=== PATIENT | female | born 1960 | race Caucasian/White ===

== ENCOUNTER 2016-06-15 11:14 | Outpatient (CLI) | payer OTHER ==
[2014-08-27 14:45] VITALS: BMI 28.7
[2016-06-15 11:52] LABS: PROTHROMBIN TIME 22.8 SEC (9.3-11.0)
== END 2016-06-15 11:15 | disposition home or self-care (01) ==
LOC: LAB 11:14
PROVIDERS: ATTEND Nurse Practitioner Family
DX: D68.62 Lupus anticoagulant syndrome (principal)
CPT/HCPCS: 36415; 85610

== ENCOUNTER 2016-07-14 08:25 | Outpatient (CLI) | payer OTHER ==
[2014-08-27 14:45] VITALS: BMI 28.7
[2016-07-14 09:22] LABS: BILIRUBIN,URINE Negative (NEGATIVE); KETONES,URINE Negative (NEGATIVE); LEUKOCYTE ESTERASE ,URINE Negative (NEGATIVE); NITRITE,URINE Negative (NEGATIVE); PH,URINE 5.5 (5-9); PROTEIN,URINE Negative (NEGATIVE); URINE, BLOOD Negative (NEGATIVE)
[2016-07-14 09:23] LABS: ADD URINE MICROSCOPIC NO
[2016-07-14 09:23] LABS: PROTHROMBIN TIME 23.5 SEC (9.3-11.0)
[2016-07-14 09:59] LABS: ALBUMIN 3.7 g/dL (3.4-5.0); ALBUMIN/GLOBULIN RATIO 1.12; ANION GAP 14.6; BILIRUBIN,TOTAL 0.37 mg/dL (0.00-1.20); BUN/CREATININE RATIO 12.85; CALCIUM 8.9 mg/dL (8.2-10.2); CREATININE 0.7 mg/dL (0.60-1.30); POTASSIUM 4.6 mmol/L (3.5-5.10)
== END 2016-07-14 08:26 | disposition home or self-care (01) ==
LOC: LAB 08:25
PROVIDERS: ATTEND Nurse Practitioner Family
DX: D68.62 Lupus anticoagulant syndrome (principal); R31.9 Hematuria, unspecified
CPT/HCPCS: 36415; 80053; 81001; 83036; 85610

== ENCOUNTER 2016-11-06 11:07 | Outpatient (CLI) | payer OTHER ==
[2014-08-27 14:45] VITALS: BMI 28.7
[2016-11-06 11:35] LABS: PROTHROMBIN TIME 10.8 SEC (9.3-11.0)
== END 2016-11-06 11:08 | disposition home or self-care (01) ==
LOC: LAB 11:07
PROVIDERS: ATTEND Nurse Practitioner Family
DX: D68.62 Lupus anticoagulant syndrome (principal)
CPT/HCPCS: 36415; 85610

== ENCOUNTER 2016-11-11 15:18 | Emergency (ER) | payer OTHER ==
[2016-11-11 15:22] VITALS: BP 117/73; TEMP 98.2; BMI 27.3
--- NOTE | 2016-11-11 16:43 | ED.PDOC ---
General ED Provider: Dr. DOMENICA ZUÑIGA Chief Complaint: Extremity Pain/Injury Stated Complaint: Pateint is 56 year old female who complains of pain starts on the lower back radiating to the right thigh. Denies any Recent trauma. she is on warfarin for DVT Time Seen by Physician: 16:41 Mode of Arrival: Walk-In Information Source: Patient Exam Limitations: No limitations Primary Care Provider: CHLOE DANIEL Nursing and Triage Documentation Reviewed and Agree: Yes Musculoskeletal Complaint Exam - Hip/Pelvis Complaint/Exam Location of Pain: Reports: Left Mechanism of Injury: Reports: No known trauma Onset/Duration: 1 day Symptoms Are: Still present Initial Severity: Moderate Current Severity: Severe Location: Reports: Radiating (left leg) Character: Reports: Dull, Aching Aggravating: Reports: Movement, Weight bearing Alleviating: Reports: Rest Associated Signs and Symptoms: Denies: Swelling, Redness, Bruising, Fever, Weakness, Dizziness, Syncope, Abdominal pain, Knee pain Able to Bear Weight: Yes Septic Arthritis Risk Factors: Reports: None Rotation: External Pelvis Palpation: Stable Hip/Pelvis Findings: Absent: Extremity shortened, Swelling, Ecchymosis, Erythema , Warmth Tenderness: Present: Left, PSIS Range of Motion Limited In: Present: External rotation NV Bundle Intact Distal to Injury: Yes Differential Diagnoses: Sciatica, Sprain, Strain Review of Systems - Review Of Systems Constitutional: Reports: No symptoms Eyes: Reports: No symptoms Ears, Nose, Mouth, Throat: Reports: No symptoms Respiratory: Reports: No symptoms Cardiac: Reports: No symptoms GI: Reports: No symptoms : Reports: No symptoms Musculoskeletal: Reports: Back pain, Joint pain, Muscle pain Skin: Reports: No symptoms Neurological: Reports: Anxiety Endocrine: Reports: No symptoms Hematologic/Lymphatic: Reports: No symptoms All Other Systems: Reviewed and Negative Past Medical History - Past Medical History Previously Healthy: Yes Endocrine: Reports: DM 2 Cardiovascular: Reports: DVT Respiratory: Reports: None Hematological: Reports: None Gastrointestinal: Reports: None Genitourinary: Reports: None Neuro/Psych: Reports: None Musculoskeletal: Reports: None Cancer: Reports: None Last Menstrual Period: none - Surgical History General Surgical History: Reports: None - Family History Family History: Reports: None - Social History Smoking Status: Current every day smoker, Light tobacco smoker Hx Substance Use: No Alcohol Screening: None Physical Exam - Physical Exam Appearance: Well-appearing, No pain distress, Well-nourished Eyes: MARIA ESTHER, EOMI, Conjunctiva clear ENT: Ears normal, Nose normal, Oropharynx normal Respiratory: Airway patent, Breath sounds clear, Breath sounds equal, Respirations nonlabored Cardiovascular: RRR, Pulses normal, No rub, No murmur GI/: Soft, Nontender, No masses, Bowel sounds normal, No Organomegaly Musculoskeletal: Normal strength, No edema, No calf tenderness, Limited ROM ( Left up fo full extension) Skin: Warm, Dry, Normal color Neurological: Sensation intact, Motor intact, Reflexes intact, Cranial nerves intact, Alert, Oriented Psychiatric: Affect appropriate, Mood appropriate Interpretation - Radiology Interpretation Radiology Interpretation By: ED Physician Radiology Results: Negative Exam Interpreted: Other (Left hip ) Critical Care Note - Critical Care Note Total Time (mins): 0 Course - Course Orders, Labs, Meds: Lab Review 11/11/16 16:40 PT 14.3 H INR 1.39 Orders Category Date Time Status PT WITH INR Stat LAB 11/11/16 16:40 Completed Ketorolac Tromethamine [Toradol] MEDS 11/11/16 16:59 Discontinued 60 mg IM ONCE STA HIP, LEFT 2 VIEWS Stat RADS 11/11/16 16:40 Taken Medications Discontinued Medications Generic Name Dose Route Start Last Admin Trade Name Freq PRN Reason Stop Dose Admin Ketorolac Tromethamine 60 mg 11/11/16 16:59 11/11/16 17:07 Toradol IM 11/11/16 17:00 60 mg ONCE STA Administration Vital Signs: Temp Pulse Resp BP Pulse Ox 11/11/16 15:19 98.2 F 80 18 117/73 96 Departure - Departure Time of Disposition: 17:03 Disposition: HOME SELF-CARE Discharge Problem: Sciatic leg pain Instructions: Piriformis Syndrome (ED) Condition: Fair Pt referred to PMD for follow-up: Yes Additional Instructions: Rest Take pain medications as prescribed Followup with PCP in 3 days Call your clinic to let them know your INR is not therapeutic so that they can adjust your medications accordingly Prescriptions: Hydrocodone/Acetaminophen [[place] 5-325 Tablet] 1 tab PO Q6HR PRN #12 tablet PRN Reason: PAIN Allergies/Adverse Reactions: Allergies Penicillins Adverse Reaction (Verified 11/11/16 15:24) Home Medications: Ambulatory Orders Citalopram Hydrobromide [Citalopram HBr] 10 mg PO DAILY 11/11/16 Hydrocodone/Acetaminophen [[place] 5-325 Tablet] 1 tab PO Q6HR PRN #12 tablet Disposition Discussed With: Patient
[2016-11-11] MEDS ORDERED: TORADOL IM STA (16:59)
[2016-11-11 17:09] LABS: PROTHROMBIN TIME 14.3 SEC (9.3-11.0)
--- NOTE | 2016-11-11 18:13 | DI ---
EXAM: Two views of the left hip. History: Left hip pain. Findings: No acute fracture or dislocation. Left hip joint space is relatively preserved. Nonspec ific pelvic calcifications are probably phleboliths. Impression: No acute osseous abnormality.
== END 2016-11-11 17:28 | disposition home or self-care (01) ==
LOC: ED 15:18
DX: M54.42 Lumbago with sciatica, left side (principal); Z79.01 Long term (current) use of anticoagulants; Z79.899 Other long term (current) drug therapy; Z86.718 Personal history of other venous thrombosis and embolism; F17.210 Nicotine dependence, cigarettes, uncomplicated
CPT/HCPCS: 36415; 85610; 96372; 99282

== ENCOUNTER 2016-11-30 10:51 | Outpatient (CLI) ==
[2016-11-30 11:32] LABS: PROTHROMBIN TIME 13.8 SEC (9.3-11.0)
== END 2016-11-30 10:52 | disposition home or self-care (01) ==
LOC: LAB 10:51
PROVIDERS: ATTEND Nurse Practitioner Family
DX: D68.62 Lupus anticoagulant syndrome (principal)
CPT/HCPCS: 36415; 85610

== ENCOUNTER 2016-12-01 22:14 | Emergency (ER) ==
[2016-12-01 22:25] VITALS: BP 127/86; TEMP 100.3; BMI 26.0
--- NOTE | 2016-12-01 23:12 | DI ---
EXAM: Right ankle. Three-view HISTORY: Fall COMPARISON: 02/22/2040 FINDINGS: No acute fracture dislocation. Small chronic ossification near the distal fibula may be due to old trauma or ossification center. Ankle mortise is symmetric. Tiny plantar calcaneal spur. N o focal soft tissue abnormality. IMPERSSION: No acute fracture or dislocation.
--- NOTE | 2016-12-01 23:14 | DI ---
EXAM: Right foot three views HISTORY: Fall COMPARISON: 02/21/2014 FINDINGS: No fracture or dislocation. Tiny plantar calcaneal spur. The joints are normal. No focal soft tissue abnormality. IMPERSSION: No fracture or dislocation
--- NOTE | 2016-12-01 23:15 | DI ---
EXAM: Right shoulder three view HISTORY: Fall COMPARISON: None FINDINGS: The bones are normal. The glenohumeral joint and acromioclavicular joint are normal. No f ocal soft tissue abnormality. Visualized portion of the chest is normal. IMPERSSION: Normal examination.
--- NOTE | 2016-12-01 23:21 | ED.PDOC ---
General ED Provider: Dr. RONAL OJEDA-ER Chief Complaint: Foot Pain/Injury Stated Complaint: i fell and hurt myself 111/2 weeks ago-now its more painful Time Seen by Physician: 22:15 Mode of Arrival: Walk-In Information Source: Patient Exam Limitations: No limitations Primary Care Provider: CHLOE DANIEL Nursing and Triage Documentation Reviewed and Agree: Yes Musculoskeletal Complaint Exam - Ankle/Foot Complaint/Exam Location of Injury: Reports: Right, Ankle, Foot Mechanism of Injury: Reports: Trauma Onset/Duration: 11/2 weeks ago Symptoms Are: Reports: Still present Onset of Pain: Reports: Immediate Initial Severity: Mild Current Severity: Mild Location: Reports: Discrete (right ankle) Character: Reports: Dull, Aching Alleviating: Reports: Rest, Position Aggravating: Reports: Movement, Weight bearing, Prolonged standing Able to Bear Weight: Yes Associated Signs and Symptoms: Reports: Swelling, Bruising Lower Extremity Findings: Present: Swelling, Ecchymosis, Tenderness, Limited range of motion Achilles Tendon Abnormality: No Tenderness: Present: Lateral malleolus Limited Range of Motion: Present: Inversion, Eversion Differential Diagnosis: Closed Fracture, Sprain, Strain Review of Systems - Review Of Systems Constitutional: Reports: No symptoms Eyes: Reports: No symptoms Ears, Nose, Mouth, Throat: Reports: No symptoms Respiratory: Reports: No symptoms Cardiac: Reports: No symptoms GI: Reports: No symptoms : Reports: No symptoms Musculoskeletal: Reports: Joint pain, Joint swelling, Muscle pain Skin: Reports: No symptoms Neurological: Reports: No symptoms Endocrine: Reports: No symptoms Hematologic/Lymphatic: Reports: No symptoms All Other Systems: Reviewed and Negative Past Medical History - Past Medical History Previously Healthy: Yes Endocrine: Reports: DM 2 Cardiovascular: Reports: DVT Respiratory: Reports: None Hematological: Reports: None Gastrointestinal: Reports: None Genitourinary: Reports: None Neuro/Psych: Reports: None Musculoskeletal: Reports: None Cancer: Reports: None Last Menstrual Period: YEARS AGO - Surgical History General Surgical History: Reports: None - Family History Family History: Reports: None - Social History Smoking Status: Current every day smoker, Light tobacco smoker Hx Substance Use: No Alcohol Screening: None Lives: With family - Immunizations Tetanus Shot up to Date: (UNKNOWN) Physical Exam - Physical Exam Appearance: Well-appearing, No pain distress, Well-nourished Pain Distress: Mild Eyes: MARIA ESTHER, EOMI, Conjunctiva clear ENT: Ears normal, Nose normal, Oropharynx normal Neck: Supple Respiratory: Airway patent Cardiovascular: RRR, Pulses normal, No rub, No murmur GI/: Soft, Nontender, No masses, Bowel sounds normal, No Organomegaly Musculoskeletal: Limited ROM Skin: Warm, Dry, Normal color Neurological: Sensation intact, Motor intact, Reflexes intact, Cranial nerves intact, Alert, Oriented Psychiatric: Affect appropriate, Mood appropriate Critical Care Note - Critical Care Note Total Time (mins): 0 Course - Course Orders, Labs, Meds: Orders Category Date Time Status ANKLE, RIGHT MIN 3 VIEWS Stat RADS 12/01/16 22:32 Completed FOOT, RIGHT 3 VIEWS Stat RADS 12/01/16 22:32 Completed SHOULDER, RIGHT MIN 2V Stat RADS 12/01/16 22:32 Completed Vital Signs: Temp Pulse Resp BP Pulse Ox 12/01/16 22:15 100.3 F H 70 18 127/86 94 L Departure - Departure Time of Disposition: 23:21 Disposition: HOME SELF-CARE Discharge Problem: Ankle sprain Qualifiers: Encounter type: initial encounter Involved ligament of ankle: other ligament Laterality: right Qualifier Code: (S93.491A) Sprain of other ligament of right ankle, initial encounter Instructions: Ankle Sprain (ED) Condition: Good Pt referred to PMD for follow-up: Yes Additional Instructions: stay in splint and crutches--norco 5mg q 4hrs pr npain #15--f/u pcp next week Allergies/Adverse Reactions: Allergies Penicillins Adverse Reaction (Verified 12/01/16 22:25) Home Medications: Ambulatory Orders Citalopram Hydrobromide [Citalopram HBr] 10 mg PO DAILY 11/11/16 Metformin HCl 1,000 mg PO DAILY 12/01/16 Disposition Discussed With: Patient
== END 2016-12-01 23:50 | disposition home or self-care (01) ==
LOC: ED 22:14
DX: S93.491A Sprain of other ligament of right ankle, initial encounter (principal); W19.XXXA Unspecified fall, initial encounter; F17.210 Nicotine dependence, cigarettes, uncomplicated
CPT/HCPCS: 99282

== ENCOUNTER 2016-12-05 11:41 | Outpatient (CLI) ==
[2016-12-05 12:26] LABS: PROTHROMBIN TIME 17.9 SEC (9.3-11.0)
== END 2016-12-05 11:42 | disposition home or self-care (01) ==
LOC: LAB 11:41
PROVIDERS: ATTEND Nurse Practitioner Family
DX: D68.62 Lupus anticoagulant syndrome (principal)
CPT/HCPCS: 36415; 85610

== ENCOUNTER 2016-12-20 11:12 | Outpatient (CLI) ==
[2016-12-20 11:40] LABS: PROTHROMBIN TIME 26.4 SEC (9.3-11.0)
== END 2016-12-20 11:13 | disposition home or self-care (01) ==
LOC: LAB 11:12
PROVIDERS: ATTEND Nurse Practitioner Family
DX: D68.62 Lupus anticoagulant syndrome (principal)
CPT/HCPCS: 36415; 85610

== ENCOUNTER 2017-01-09 11:40 | Outpatient (CLI) ==
[2017-01-09 12:26] LABS: PROTHROMBIN TIME 22.3 SEC (9.3-11.0)
== END 2017-01-09 11:41 | disposition home or self-care (01) ==
LOC: LAB 11:40
PROVIDERS: ATTEND Nurse Practitioner Family
DX: D68.62 Lupus anticoagulant syndrome (principal)
CPT/HCPCS: 36415; 85610

== ENCOUNTER 2017-02-05 10:29 | Outpatient (CLI) ==
[2017-02-05 10:58] LABS: PROTHROMBIN TIME 10.7 SEC (9.3-11.0)
== END 2017-02-05 10:30 | disposition home or self-care (01) ==
LOC: LAB 10:29
PROVIDERS: ATTEND Nurse Practitioner Family
DX: D68.62 Lupus anticoagulant syndrome (principal)
CPT/HCPCS: 36415; 85610

== ENCOUNTER 2017-02-14 09:06 | Outpatient (CLI) ==
[2017-02-14 09:53] LABS: PROTHROMBIN TIME 22.3 SEC (9.3-11.0)
== END 2017-02-14 09:07 | disposition home or self-care (01) ==
LOC: LAB 09:06
PROVIDERS: ATTEND Nurse Practitioner Family
DX: D68.62 Lupus anticoagulant syndrome (principal)
CPT/HCPCS: 36415; 85610

== ENCOUNTER 2017-03-05 11:48 | Outpatient (CLI) ==
[2017-03-05 12:38] LABS: PROTHROMBIN TIME 24.3 SEC (9.3-11.0)
== END 2017-03-05 11:49 | disposition home or self-care (01) ==
LOC: LAB 11:48
PROVIDERS: ATTEND Nurse Practitioner Family
DX: D68.62 Lupus anticoagulant syndrome (principal)
CPT/HCPCS: 36415; 85610

== ENCOUNTER 2017-03-12 08:48 | Outpatient (CLI) ==
[2017-03-12 09:20] LABS: PROTHROMBIN TIME 22.9 SEC (9.3-11.0)
== END 2017-03-12 08:49 | disposition home or self-care (01) ==
LOC: LAB 08:48
PROVIDERS: ATTEND Nurse Practitioner Family
DX: D68.62 Lupus anticoagulant syndrome (principal)
CPT/HCPCS: 36415; 85610

== ENCOUNTER 2017-04-11 08:55 | Outpatient (CLI) ==
[2017-04-11 09:41] LABS: PROTHROMBIN TIME 20.2 SEC (9.3-11.0)
== END 2017-04-11 08:56 | disposition home or self-care (01) ==
LOC: RAD 08:55 → LAB 08:56
PROVIDERS: ATTEND Nurse Practitioner Family
DX: D68.62 Lupus anticoagulant syndrome (principal)
CPT/HCPCS: 36415; 85610

== ENCOUNTER 2017-04-23 12:46 | Outpatient (CLI) ==
[2017-04-23 13:20] LABS: PROTHROMBIN TIME 22.3 SEC (9.3-11.0)
== END 2017-04-23 12:47 | disposition home or self-care (01) ==
LOC: LAB 12:46
PROVIDERS: ATTEND Nurse Practitioner Family
DX: D68.62 Lupus anticoagulant syndrome (principal)
CPT/HCPCS: 36415; 85610

== ENCOUNTER 2017-05-23 13:47 | Outpatient (CLI) ==
[2017-05-23 14:07] LABS: PROTHROMBIN TIME 15.2 SEC (9.3-11.0)
== END 2017-05-23 13:48 | disposition home or self-care (01) ==
LOC: LAB 13:47
PROVIDERS: ATTEND Nurse Practitioner Family
DX: D68.62 Lupus anticoagulant syndrome (principal)
CPT/HCPCS: 36415; 85610

== ENCOUNTER 2017-05-31 08:56 | Outpatient (CLI) | END 2017-05-31 08:57 | disposition home or self-care (01) | LOC: LAB 08:56 | PROVIDERS: ATTEND Nurse Practitioner Family | DX: D68.62 Lupus anticoagulant syndrome (principal); E11.9 Type 2 diabetes mellitus without complications; K21.9 Gastro-esophageal reflux disease without esophagitis; E75.6 Lipid storage disorder, unspecified | CPT/HCPCS: 36415; 80053; 80061; 83036; 85025; 85610 ==

== ENCOUNTER 2017-06-18 11:26 | Outpatient (CLI) | END 2017-06-18 11:27 | disposition home or self-care (01) | LOC: LAB 11:26 | PROVIDERS: ATTEND Nurse Practitioner Family | DX: D68.62 Lupus anticoagulant syndrome (principal) | CPT/HCPCS: 36415; 85610 ==

== ENCOUNTER 2017-07-05 10:50 | Outpatient (CLI) | END 2017-07-05 10:51 | disposition home or self-care (01) | LOC: LAB 10:50 | PROVIDERS: ATTEND Nurse Practitioner Family | DX: D68.62 Lupus anticoagulant syndrome (principal) | CPT/HCPCS: 36415; 85610 ==

== ENCOUNTER 2017-07-16 15:03 | Outpatient (CLI) | END 2017-07-16 15:04 | disposition home or self-care (01) | LOC: LAB 15:03 | PROVIDERS: ATTEND Nurse Practitioner Family | DX: D68.62 Lupus anticoagulant syndrome (principal) | CPT/HCPCS: 36415; 85610 ==

== ENCOUNTER 2017-08-09 09:35 | Outpatient (CLI) | END 2017-08-09 09:36 | disposition home or self-care (01) | LOC: LAB 09:35 | PROVIDERS: ATTEND Nurse Practitioner Family | DX: D68.62 Lupus anticoagulant syndrome (principal) | CPT/HCPCS: 36415; 85610 ==

== ENCOUNTER 2017-08-15 13:04 | Outpatient (CLI) | END 2017-08-15 13:05 | disposition home or self-care (01) | LOC: LAB 13:04 | PROVIDERS: ATTEND Nurse Practitioner Family | DX: D68.62 Lupus anticoagulant syndrome (principal) | CPT/HCPCS: 36415; 85610 ==

== ENCOUNTER 2017-08-27 12:49 | Outpatient (CLI) | END 2017-08-27 12:50 | disposition home or self-care (01) | LOC: LAB 12:49 | PROVIDERS: ATTEND Nurse Practitioner Family | DX: D68.62 Lupus anticoagulant syndrome (principal) | CPT/HCPCS: 36415; 85610 ==

== ENCOUNTER 2017-09-03 10:25 | Outpatient (CLI) | END 2017-09-03 10:26 | disposition home or self-care (01) | LOC: LAB 10:25 | PROVIDERS: ATTEND Nurse Practitioner Family | DX: D68.62 Lupus anticoagulant syndrome (principal) | CPT/HCPCS: 36415; 85610 ==

== ENCOUNTER 2017-09-11 09:44 | Outpatient (CLI) | payer OTHER | END 2017-09-11 09:45 | disposition home or self-care (01) | LOC: LAB 09:44 | PROVIDERS: ATTEND Nurse Practitioner Family | DX: D68.62 Lupus anticoagulant syndrome (principal); E78.5 Hyperlipidemia, unspecified; E11.9 Type 2 diabetes mellitus without complications | CPT/HCPCS: 36415; 80053; 80061; 83036; 85025; 85610 ==

== ENCOUNTER 2017-09-14 10:12 | Outpatient (CLI) | END 2017-09-14 10:13 | disposition home or self-care (01) | LOC: LAB 10:12 | PROVIDERS: ATTEND Nurse Practitioner Family | DX: D68.62 Lupus anticoagulant syndrome (principal) | CPT/HCPCS: 36415; 85610 ==

== ENCOUNTER 2017-09-28 11:20 | Outpatient (CLI) | payer OTHER | END 2017-09-28 11:21 | disposition home or self-care (01) | LOC: LAB 11:20 | PROVIDERS: ATTEND Nurse Practitioner Family | DX: D68.62 Lupus anticoagulant syndrome (principal) | CPT/HCPCS: 36415; 85610 ==

== ENCOUNTER 2017-10-12 11:27 | Outpatient (CLI) | END 2017-10-12 11:28 | disposition home or self-care (01) | LOC: LAB 11:27 | PROVIDERS: ATTEND Nurse Practitioner Family | DX: D68.62 Lupus anticoagulant syndrome (principal) | CPT/HCPCS: 36415; 85610 ==

== ENCOUNTER 2017-11-21 14:19 | Outpatient (CLI) | END 2017-11-21 14:20 | disposition home or self-care (01) | LOC: LAB 14:19 | PROVIDERS: ATTEND Nurse Practitioner Family | DX: D68.62 Lupus anticoagulant syndrome (principal) | CPT/HCPCS: 36415; 85610 ==

== ENCOUNTER 2017-12-10 13:03 | Outpatient (CLI) | END 2017-12-10 13:04 | disposition home or self-care (01) | LOC: LAB 13:03 | PROVIDERS: ATTEND Family Medicine | DX: D68.62 Lupus anticoagulant syndrome (principal) | CPT/HCPCS: 36415; 85610 ==

== ENCOUNTER 2018-02-14 11:35 | Outpatient (CLI) | END 2018-02-14 11:36 | disposition home or self-care (01) | LOC: LAB 11:35 | PROVIDERS: ATTEND Family Medicine | DX: D68.62 Lupus anticoagulant syndrome (principal) | CPT/HCPCS: 36415; 85610 ==

== ENCOUNTER 2018-07-06 16:17 | Emergency (ER) | payer OTHER ==
[2018-07-06 16:21] VITALS: BP 155/90; TEMP 98; BMI 27.0
--- NOTE | 2018-07-06 16:39 | ED.PDOC ---
General ED Provider: Dr. RONAL LOWE Chief Complaint: Back Pain Stated Complaint: Mid Thoracic spine pain-intermittent;increased with deep breathing and movement. Cough productive of yellowish colored sputum. Cough and congestion/. phlegm. states she has nasal congestion also. denies sore throat. Time Seen by Physician: 16:35 Mode of Arrival: Walk-In Information Source: Patient Exam Limitations: No limitations Primary Care Provider: ALFONSO BAEZA Nursing and Triage Documentation Reviewed and Agree: Yes Does patient meet sepsis criteria?: No System Inflammatory Response Syndrome: Not Applicable Sepsis Protocol: For patient's 13 years and over: Temp is 96.8 and below OR 101 and greater Pulse >90 BPM Resp >20/minute Acutely Altered Mental Status Are patient's symptoms suggestive of a new infection, such as: -Pneumonia -Skin, Soft Tissue -Endocarditis -UTI -Bone, Joint Infection -Implantable Device -Acute Abdominal Infection -Wound Infection -Meningitis -Blood Stream Catheter Infection -Unknown Review of Systems - Review Of Systems Constitutional: Reports: No symptoms Eyes: Reports: No symptoms Ears, Nose, Mouth, Throat: Reports: No symptoms Respiratory: Reports: No symptoms Cardiac: Reports: No symptoms GI: Reports: No symptoms : Reports: Burning, Dysuria Musculoskeletal: Reports: Back pain Skin: Reports: No symptoms Neurological: Reports: No symptoms Endocrine: Reports: No symptoms Hematologic/Lymphatic: Reports: No symptoms All Other Systems: Reviewed and Negative Past Medical History - Past Medical History Previously Healthy: Yes Endocrine: Reports: DM 2 Cardiovascular: Reports: DVT Respiratory: Reports: None Hematological: Reports: None Gastrointestinal: Reports: None Genitourinary: Reports: None Neuro/Psych: Reports: None Musculoskeletal: Reports: None Cancer: Reports: None Last Menstrual Period: n/a - Surgical History General Surgical History: Reports: None - Family History Family History: Reports: None - Social History Smoking Status: Current every day smoker, Light tobacco smoker Hx Substance Use: No Alcohol Screening: None Physical Exam - Physical Exam Appearance: Well-appearing, No pain distress, Well-nourished Ill-appearing: None Pain Distress: None Eyes: MARIA ESTHER, EOMI, Conjunctiva clear ENT: Ears normal, Nose normal, Oropharynx normal Neck: Supple Respiratory: Airway patent, Breath sounds clear, Breath sounds equal, Respirations nonlabored Cardiovascular: RRR, Pulses normal, No rub, No murmur GI/: Soft, Nontender, No masses, Bowel sounds normal, No Organomegaly Musculoskeletal: Normal strength, ROM intact, No edema, No calf tenderness Skin: Warm, Dry, Normal color Neurological: Sensation intact, Motor intact, Reflexes intact, Cranial nerves intact, Alert, Oriented Psychiatric: Affect appropriate, Mood appropriate Re-Evaluation - Re-Evaluation Time of Re-Evaluation: 19:00 Status: Improved Vital Signs Stable: Yes Appearance: NAD Lungs: Clear Skin: Warm and Dry Neuro: Alert and Oriented X3 CV: RRR Critical Care Note - Critical Care Note Total Time (mins): 0 Course - Course Hematology/Chemistry: 07/06/18 17:00 07/06/18 17:00 Orders, Labs, Meds: Lab Review 07/06/18 07/06/18 07/06/18 16:43 16:52 16:52 WBC RBC Hgb Hct MCV MCH MCHC RDW Coeff of Ally Plt Count Immature Gran % (Auto) Neut % (Auto) Lymph % (Auto) [place] % (Auto) Eos % (Auto) Baso % (Auto) Immature Gran # (Auto) Neut # (Auto) Lymph # (Auto) [place] # (Auto) Eos # (Auto) Baso # (Auto) Puncture Site L radial O2 Saturation 94.0 L ABG pH 7.419 ABG pCO2 36.7 ABG pO2 71.0 L ABG HCO3 23.8 ABG Total CO2 25 ABG Base Excess -1 Ricardo Test + FiO2 % 21.0 Sodium Potassium Chloride Carbon Dioxide Anion Gap BUN Creatinine Estimated GFR (MDRD) BUN/Creatinine Ratio Glucose Calcium Total Bilirubin AST ALT Alkaline Phosphatase Troponin I Total Protein Albumin Globulin Albumin/Globulin Ratio Urine Color Urine Clarity Urine pH Ur Specific [place] Urine Protein Urine Glucose (UA) Urine Ketones Urine Blood Urine Nitrite Urine Bilirubin Urine Urobilinogen Ur Leukocyte Esterase Urine Microscopic RBC Urine Microscopic WBC Ur Squamous Epith Cells Urine Bacteria Urine Mucus Influ A Molecular Assay Negative by naat Influ B Molecular Assay Negative by naat RSV Antigen Negative by naat 07/06/18 07/06/18 07/06/18 17:00 17:00 17:40 WBC 8.10 RBC 4.86 Hgb 13.6 Hct 41.5 MCV 85.4 MCH 28.0 MCHC 32.8 RDW Coeff of Ally 13.0 Plt Count 272 Immature Gran % (Auto) 0.5 Neut % (Auto) 65.4 Lymph % (Auto) 28.6 [place] % (Auto) 4.7 Eos % (Auto) 0.6 Baso % (Auto) 0.2 Immature Gran # (Auto) 0.0 Neut # (Auto) 5.3 Lymph # (Auto) 2.3 [place] # (Auto) 0.4 Eos # (Auto) 0.1 Baso # (Auto) 0.0 Puncture Site O2 Saturation ABG pH ABG pCO2 ABG pO2 ABG HCO3 ABG Total CO2 ABG Base Excess Ricardo Test FiO2 % Sodium 141.2 Potassium 4.05 Chloride 103.1 Carbon Dioxide 27.9 Anion Gap 14.25 BUN 11.7 Creatinine 0.55 L Estimated GFR (MDRD) 114.00 BUN/Creatinine Ratio 21.27 Glucose 148.0 H Calcium 9.24 Total Bilirubin 0.54 AST 20.3 ALT 16.6 Alkaline Phosphatase 64.7 Troponin I < 0.012 Total Protein 7.88 Albumin 4.24 Globulin 3.64 Albumin/Globulin Ratio 1.16 Urine Color Yellow Urine Clarity Clear Urine pH 6.0 Ur Specific [place] >=1.030 Urine Protein Trace Urine Glucose (UA) Negative Urine Ketones 2+ Urine Blood Trace-intact Urine Nitrite Negative Urine Bilirubin Negative Urine Urobilinogen 2.0 Ur Leukocyte Esterase Negative Urine Microscopic RBC 0-2 Urine Microscopic WBC 0-2 Ur Squamous Epith Cells 2-5 Urine Bacteria 2+ Urine Mucus 2+ Influ A Molecular Assay Influ B Molecular Assay RSV Antigen Orders Category Date Time Status ABG DRAW REQUEST Stat CARDIO 07/06/18 16:45 Completed EKG-(ED ONLY) Stat CARDIO 07/06/18 16:43 Completed NEBULIZER TREATMENT Stat CARDIO 07/06/18 16:44 Completed NEBULIZER TREATMENT Stat CARDIO 07/06/18 16:45 Completed ABG Stat LAB 07/06/18 16:43 Completed CBC W/ AUTO DIFF Stat LAB 07/06/18 17:00 Completed CMP [COMPREHENSIVE METABOLIC PANEL] Stat LAB 07/06/18 17:00 Completed FLU A & B MOLECULAR [FLU A/B MOLECULAR] Stat LAB 07/06/18 16:52 Completed RSV Stat LAB 07/06/18 16:52 Completed SPUTUM CULTURE Stat LAB 07/06/18 17:27 Received TROPONIN I Stat LAB 07/06/18 17:00 Completed UA [URINALYSIS C & S IF INDICATED] Stat LAB 07/06/18 17:40 Completed URINE CULTURE Stat LAB 07/06/18 17:40 Received Albuterol Sulfate 0.083% Neb [Albuterol 0.083% Neb] MEDS 07/06/18 16:44 Discontinued 1 vial NEB ONCE STA Ipratropium [place] 0.02% Neb [Atrovent 0.02% Neb] MEDS 07/06/18 16:44 Discontinued 1 vial NEB ONCE STA Ketorolac Tromethamine [Toradol] MEDS 07/06/18 17:17 Discontinued 30 mg IM ONCE STA CHEST, 1V AP ONLY Stat RADS 07/06/18 16:43 Completed Medications Discontinued Medications Generic Name Dose Route Start Last Admin Trade Name Freq PRN Reason Stop Dose Admin Albuterol Sulfate 1 vial 07/06/18 16:44 07/06/18 17:12 Albuterol 0.083% Neb NEB 07/06/18 16:45 1 vial ONCE STA Administration Ipratropium [place] 1 vial 07/06/18 16:44 07/06/18 17:11 Atrovent 0.02% Neb NEB 07/06/18 16:45 1 vial ONCE STA Administration Ketorolac Tromethamine 30 mg 07/06/18 17:17 07/06/18 17:36 Toradol IM 07/06/18 17:18 30 mg ONCE STA Administration Vital Signs: Temp Pulse Resp BP Pulse Ox 07/06/18 16:17 98.0 F 72 16 155/90 H 94 L Departure - Departure Time of Disposition: 19:00 Disposition: HOME SELF-CARE Discharge Problem: UTI (urinary tract infection), Back pain Instructions: Urinary Tract Infection in Women (ED), Back Pain (ED) Condition: Good Pt referred to PMD for follow-up: Yes (as needed) IPMP verified?: No Prescriptions: Ibuprofen [Motrin] 400 mg PO Q8H PRN #20 tablet PRN Reason: PAIN Nitrofurantoin Monohyd/M-Cryst [Macrobid] 100 mg PO BID #20 capsule Phenazopyridine HCl [Pyridium] 100 mg PO TID #15 tablet Allergies/Adverse Reactions: Allergies Penicillins Adverse Reaction (Verified 07/06/18 16:21) Home Medications: Ambulatory Orders Ibuprofen [Motrin] 400 mg PO Q8H PRN #20 tablet 07/06/18 Nitrofurantoin Monohyd/M-Cryst [Macrobid] 100 mg PO BID #20 capsule 07/06/18 Phenazopyridine HCl [Pyridium] 100 mg PO TID #15 tablet 07/06/18 Disposition Discussed With: Patient, Family
[2018-07-06] MEDS ORDERED: ALBUTEROL 0.083% NEB NEB STA (16:44)
[2018-07-06] MEDS ORDERED: ATROVENT 0.02% NEB NEB STA (16:44)
[2018-07-06] MEDS ORDERED: TORADOL IM STA (17:17)
--- NOTE | 2018-07-06 18:50 | DI ---
EXAM: One-view chest HISTORY: Chest pain TECHNIQUE: Single frontal view the chest was obtained. Comparison 05/01/2016. FINDINGS: The heart is normal size. Lungs are clear. The pulmonary vasculature appears normal. Th e costophrenic angles are sharp. The osseous structures are normal. IMPRESSION: No active cardiopulmonary disease.
== END 2018-07-06 19:09 | disposition home or self-care (01) ==
LOC: ED 16:17
DX: N39.0 Urinary tract infection, site not specified (principal); M54.9 Dorsalgia, unspecified; R05 Cough; R09.81 Nasal congestion; E11.9 Type 2 diabetes mellitus without complications; F17.210 Nicotine dependence, cigarettes, uncomplicated; Z86.718 Personal history of other venous thrombosis and embolism
CPT/HCPCS: 36415; 80053; 81001; 82803; 84484; 85025; 87070; 87086; 87186; 87502; 87801; 93005; 93010; 94640; 96372; 99283

== ENCOUNTER 2018-08-29 10:13 | Emergency (ER) | payer OTHER ==
[2018-08-29 10:17] VITALS: TEMP 98.8; BMI 26.2
[2018-08-29 10:20] VITALS: BP 127/75
--- NOTE | 2018-08-29 11:08 | ED.PDOC ---
General ED Provider: Dr. RONAL LOWE Chief Complaint: Earache Stated Complaint: Rt ear aching Time Seen by Physician: 10:35 Mode of Arrival: Walk-In Information Source: Patient Exam Limitations: No limitations Primary Care Provider: ALFONSO BAEZA Nursing and Triage Documentation Reviewed and Agree: Yes Does patient meet sepsis criteria?: No If yes, has appropriate treatment been initiated?: No System Inflammatory Response Syndrome: Not Applicable Sepsis Protocol: For patient's 13 years and over: Temp is 96.8 and below OR 101 and greater Pulse >90 BPM Resp >20/minute Acutely Altered Mental Status Are patient's symptoms suggestive of a new infection, such as: -Pneumonia -Skin, Soft Tissue -Endocarditis -UTI -Bone, Joint Infection -Implantable Device -Acute Abdominal Infection -Wound Infection -Meningitis -Blood Stream Catheter Infection -Unknown EENT Complaint Exam - Ear Complaint/Exam Onset/Duration: 1 week Symptoms Are: Still present Timing: Constant Initial Severity: Moderate Current Severity: Moderate Character: Reports: Dull pain, Aching pain Aggravating: Reports: Position, Movement Alleviating: Reports: Antipyretics Associated Signs and Symptoms: Denies: Ear trauma, Ear swelling, Discharge, Fever, Hearing loss, Bleeding, Sore throat, Headache, URI symptoms, Foreign body sensation, Rash, Pain to external ear, Pain to external face Related History: Denies: Similar Episode Ear Surgical History: None Vesicles to External Pinna: No Vesicles to Tragus: No TMJ Tenderness: None Mastoid Tenderness: None Tragal Tenderness: None External Canal: Normal Material in Canal: Absent: Cerumen Tympanic Membrane: Erythema, Bulging Differential Diagnoses: Otitis Media Review of Systems - Review Of Systems Constitutional: Reports: No symptoms Eyes: Reports: No symptoms Ears, Nose, Mouth, Throat: Reports: Ear pain Respiratory: Reports: No symptoms Cardiac: Reports: No symptoms GI: Reports: No symptoms : Reports: No symptoms Musculoskeletal: Reports: No symptoms Skin: Reports: No symptoms Neurological: Reports: No symptoms Endocrine: Reports: No symptoms Hematologic/Lymphatic: Reports: No symptoms All Other Systems: Reviewed and Negative Past Medical History - Past Medical History Previously Healthy: Yes Endocrine: Reports: DM 2 Cardiovascular: Reports: DVT Respiratory: Reports: None Hematological: Reports: None Gastrointestinal: Reports: None Genitourinary: Reports: None Neuro/Psych: Reports: None Musculoskeletal: Reports: None Cancer: Reports: None Last Menstrual Period: n/a - Surgical History General Surgical History: Reports: None - Family History Family History: Reports: None - Social History Smoking Status: Current every day smoker, Light tobacco smoker Hx Substance Use: No Alcohol Screening: None Physical Exam - Physical Exam Appearance: Well-appearing, Well-nourished Ill-appearing: None Pain Distress: Mild Eyes: MARIA ESTHER, EOMI, Conjunctiva clear ENT: Ears normal, Nose normal, Oropharynx normal, TMs Occluded, Erythema (Rt TM) Respiratory: Airway patent, Breath sounds clear, Breath sounds equal, Respirations nonlabored Cardiovascular: RRR, Pulses normal, No rub, No murmur GI/: Soft, Nontender, No masses, Bowel sounds normal, No Organomegaly Musculoskeletal: Normal strength, ROM intact, No edema, No calf tenderness Skin: Warm, Dry, Normal color Neurological: Sensation intact, Motor intact, Reflexes intact, Cranial nerves intact, Alert, Oriented Psychiatric: Affect appropriate, Mood appropriate Critical Care Note - Critical Care Note Total Time (mins): 0 Course - Course Vital Signs: Temp Pulse Resp BP Pulse Ox 08/29/18 10:15 98.8 F 70 16 127/75 95 Departure - Departure Time of Disposition: 10:50 Disposition: HOME SELF-CARE Discharge Problem: Acute otitis media, right Instructions: Ear Infection (ED) Condition: Fair Pt referred to PMD for follow-up: Yes (1 wk) IPMP verified?: No Additional Instructions: Take advil or tylenol for pain Take antibiotics for pain use ear drops 2 drops into rt ear every 2-4 hrs for 3 days then 4 times daily Prescriptions: Miguel Ángel/Polymyx B Sulf/Dexameth [Maxitrol Opth Susp] 2 drop OT Q4HR 10 Days #7 drops.susp Cefadroxil 500 mg PO BID #20 capsule Allergies/Adverse Reactions: Allergies Penicillins Adverse Reaction (Verified 08/29/18 10:16) Home Medications: Ambulatory Orders Cefadroxil 500 mg PO BID #20 capsule 08/29/18 Miguel Ángel/Polymyx B Sulf/Dexameth [Maxitrol Opth Susp] 2 drop OT Q4HR 10 Days #7 drops.susp 08/29/18 Disposition Discussed With: Patient Additional Information: Pharmacist regarding potential cross sens rx with Cefadroxil and PCN Substitute Zpack which she advised pt and prev been prescribed
== END 2018-08-29 11:25 | disposition home or self-care (01) ==
LOC: ED 10:13
DX: H66.91 Otitis media, unspecified, right ear (principal); F17.210 Nicotine dependence, cigarettes, uncomplicated
CPT/HCPCS: 99282

== ENCOUNTER 2018-09-24 11:26 | Outpatient (CLI) | END 2018-09-24 11:27 | disposition home or self-care (01) | LOC: RHC-LAB 11:26 → FCC-LAB 11:27 | PROVIDERS: ATTEND Nurse Practitioner Family | DX: E11.9 Type 2 diabetes mellitus without complications (principal); D68.62 Lupus anticoagulant syndrome; I10 Essential (primary) hypertension | CPT/HCPCS: 36415; 80053; 80061; 82607; 83036; 84443; 85025; 85610 ==

== ENCOUNTER 2018-10-22 11:31 | Outpatient (CLI) | END 2018-10-22 11:32 | disposition home or self-care (01) | LOC: RHC-LAB 11:31 → FCC-LAB 11:32 | PROVIDERS: ATTEND Nurse Practitioner Family | DX: E11.9 Type 2 diabetes mellitus without complications (principal); N89.8 Other specified noninflammatory disorders of vagina; R30.0 Dysuria; Z11.4 Encounter for screening for human immunodeficiency virus [HIV]; Z20.2 Contact with and (suspected) exposure to infections with a predominantly sexual mode of transmission | CPT/HCPCS: 36415; 81001; 82947; 86592; 86706; 86803; 87340; 87389; 87800 ==